=== PATIENT | female | born 1970 | race Caucasian/White ===

== ENCOUNTER 2016-07-09 19:00 | Emergency (ER) | payer OTHER ==
[~2016-07-09] VITALS: Ht 177.8 cm; Wt 62.1 kg
[2016-07-09 19:49] LABS: HEMATOCRIT 40.5 % (36.0-46.0); MCH 28.6 PG (29.0-34.0); MCHC 32.8 G/DL (30.0-36.0); MCV 87.1 FL (83-99); MEAN PLAT.VOLUME 10.8 uM^3 (9.5-12.4); PLATELET COUNT 324 K/uL (156-360); RBC DIS.WIDTH-CV 12.2 % (11.8-14.6); RBC DIS.WIDTH-SD 39.2 % (39-53); RED BLOOD COUNT 4.65 M/uL (3.80-5.20); WHITE BLOOD COUNT 7.7 K/uL (4.1-10.2)
[2016-07-09 20:09] LABS: CHLORIDE 104 mEq/L (99-109); POTASSIUM 3.3 mEq/L (3.7-5.4); SODIUM 139 mEq/L (136-147)
[2016-07-09 20:11] LABS: GLUCOSE 87 mg/dL (70-99)
[2016-07-09 20:12] LABS: ANION GAP 10 MEQ/L (2-14)
[2016-07-09 20:15] LABS: GFR ESTIMATE (CALCULATED) 57 mL/min/
[2016-07-09 20:16] LABS: UREA NITROGEN (BUN) 14 mg/dL (9-23)
[2016-07-09 20:23] LABS: TROP-I INTERPRETATION NEGATIVE; TROPONIN-I < 0.01 ng/mL (0.0-0.30)
[2016-07-09 20:39] VITALS: BP 119/81
[2016-07-09] MEDS ORDERED: NUVARING VAGIN1 EACH VG (20:39)
== END 2016-07-09 20:46 | disposition home or self-care (01) ==
LOC: EME 19:00
DX: M94.0 Chondrocostal junction syndrome [Tietze] (principal)
CPT/HCPCS: 71020; 80048; 84484; 85027; 93005; 99281; 99284; J1885